=== PATIENT | female | born 2000 | race Caucasian/White ===

== ENCOUNTER 2020-06-07 15:16 | Emergency (ER) | payer OTHER ==
--- NOTE | 2020-06-07 16:14 | EDM.PDOC ---
ED HPI GENERAL MEDICAL PROBLEM - General Chief Complaint: Back Pain or Injury Stated Complaint: FELL HURT BACK Time Seen by Provider: 06/07/20 16:04 Source of Information: Reports: Patient History Limitations: Reports: No Limitations - History of Present Illness INITIAL COMMENTS - FREE TEXT/NARRATIVE: Patient presents for evaluation of a recent low back injury after slipping and falling against carpeted steps today. She was walking down steps when her foot went out from in front of her and she fell against the edge of several steps landing on her buttock and low back region. Pain was fairly severe at the time but she was able to stand up and move. Because of the pain, she left work today to come here. She states that about 1 year ago she had a similar fall onto the tailbone region of her back. She was seen at a clinic somewhere for an exam and eventually sessions of physical therapy for her symptoms. The physical therapy was not changing anything in her pain process so she stopped attending the sessions. She had not followed up with anybody since that time. She has had no imaging studies. Prior to the fall today, she would have daily back pain that would wax and wane depending on position and activity. At this time walking and sitting is uncomfortable. When she spoke with family, several of them suggested that perhaps she injured disc in her low back. Onset: Today, Gradual (As described above.) Location: Reports: Back (Low thoracic and entire lumbar region of back is uncomfortable. There is pain along the muscles of the right side of the low thoracolumbar region.) Quality: Reports: Ache, Throbbing Severity: Moderate Improves with: Reports: None Worsens with: Reports: Movement Context: Reports: Trauma Associated Symptoms: Reports: No Other Symptoms Middle Back Pain Score (Numeric/FACES): 7 - Related Data Allergies Allergy/AdvReac Type Severity Reaction Status Date / Time No Known Allergies Allergy Verified 06/07/20 15:40 Home Meds: Home Meds NK [No Known Home Meds] 06/07/20 [History] Past Medical History HEENT History: Reports: Impaired Vision Musculoskeletal History: Reports: Back Pain, Chronic Endocrine/Metabolic History: Reports: Obesity/BMI 30+ - Past Surgical History Head Surgeries/Procedures: Reports: None HEENT Surgical History: Reports: None Endocrine Surgical History: Reports: None Musculoskeletal Surgical History: Reports: None Dermatological Surgical History: Reports: None Social & Family History - Tobacco Use Tobacco Use Status *Q: Never Tobacco User Second Hand Smoke Exposure: No - Caffeine Use Caffeine Use: Reports: None - Recreational Drug Use Recreational Drug Use: No ED ROS GENERAL - Review of Systems Review Of Systems: Comprehensive ROS is negative, except as noted in HPI. ED EXAM,LOWER BACK PAIN/INJURY - Physical Exam Exam: See Below Text/Narrative:: This is an adult female interviewed in room 2. Exam Limited By: No Limitations General Appearance: Alert, Mild Distress Neck: Supple Respiratory/Chest: No Respiratory Distress Cardiovascular: Regular Rate, Rhythm Back Exam: CVA Tenderness (R) (The right paraspinal muscles adjacent to the painful vertebral zone also have pain with palpation. The left side does not bother her.), Vertebral Tenderness (From the lower third of the thoracic spine all the way through to the sacrum there is vertebral tenderness.) Extremities: Normal Inspection Course - Vital Signs Last Recorded V/S: Last Vital Signs Temp 36.7 C 06/07/20 15:41 Pulse 96 06/07/20 15:41 Resp 16 06/07/20 15:41 BP 151/85 H 06/07/20 15:41 Pulse Ox 99 06/07/20 15:41 - Orders/Labs/Meds Orders: Active Orders 24 hr Category Date Time Status Thoracolumbar 2V [CR] Stat Exams 06/07/20 16:16 Ordered - Re-Assessments/Exams Free Text/Narrative Re-Assessment/Exam: 06/07/20 16:24 We will obtain x-ray of the thoracolumbar spine. I discussed with her that previous providers plan with physical therapy he has, none when addressing back pain or injury especially with someone young and otherwise healthy such as she is. When things do not improve, that is when additional imaging or evaluations can or will be performed. The x-ray today would be looking for obvious fracture or malalignment. She will need to pick a primary care team of some kind to enable coordination of her care going forward. 06/07/20 17:45 I reviewed the images from her thoracolumbar series with her in the room. There are some minor remodeling changes in the L4 region extending into the pedicles. While this is not a new finding could represent previous minor injury. There is loss of lumbar lordosis on imaging today likely from the pain that she is experiencing. I discussed that there are 2 parts to her back pain: 1) is the new pain from falling today and 2) is the persistent pain since injury 1 year ago. I recommend cold packs 20 minutes off and on to the painful area that has shown up today. 10-day use of adequate doses of naproxen or ibuprofen will be most helpful. She was given a prescription for tramadol 50 mg, 15 tablets; use as directed. She needs to establish with a primary care provider. I do not know the extent to which she underwent physical therapy and other care in the past but if she did not improve with that, it could be a reason to look at future MR imaging of her lumbar spine. This needs to be a sequential, planned process. Questions were answered. She was discharged in ambulatory, stable condition. Departure - Departure Time of Disposition: 17:23 Disposition: Home, Self-Care 01 Condition: Good Clinical Impression: Back contusion Qualifiers: Encounter type: initial encounter Laterality: right Qualified Code(s): S20.221A - Contusion of right back wall of thorax, initial encounter Back pain Qualifiers: Back pain location: low back pain Chronicity: chronic Back pain laterality: right Sciatica presence: without sciatica Qualified Code(s): M54.5 - Low back pain - Discharge Information Instructions: Acute Back Pain, Adult, Contusion, [id number] Referrals: PCP,None [Primary Care Provider] - Forms: ED Department Discharge Additional Instructions: Cold packs to painful area of back 20 minutes off and on as discussed. Use Aleve up to 6 tablets daily or ibuprofen 200 mg 12 tablets daily regularly for the next 10 days for best effect on your pain. For stronger pain during times where you do not have to be alert, you could use tramadol up to 3 times a day. Since you have had persistent pain for many months, you should establish yourself with a primary care provider to recheck the pain from the fall today but also to look in more detail at the pain that has persisted over the last year. If feeling worse in any way, return to emergency department. Sepsis Event Note (ED) - Evaluation Sepsis Screening Result: No Definite Risk - Focused Exam Vital Signs: Vital Signs Temp Pulse Resp BP Pulse Ox 06/07/20 15:41 36.7 C 96 16 151/85 H 99 06/07/20 15:39 36.7 C 96 16 151/85 H 99 - My Orders Last 24 Hours: My Active Orders 06/07/20 16:16 Thoracolumbar 2V [CR] Stat - Assessment/Plan Last 24 Hours: My Active Orders 06/07/20 16:16 Thoracolumbar 2V [CR] Stat
--- NOTE | 2020-06-09 09:55 | CR ---
Thoracolumbar 2V CLINICAL HISTORY: Back pain, injury FINDINGS: The vertebral body and disc space heights are maintained. There is some straightening of the lumbar lordosis. Transverse and spinous processes and pedicles appear intact. Alignment is maintained IMPRESSION: No fracture or subluxation Straightening of the lumbar lordosis may indicate spasm
== END 2020-06-07 17:40 | disposition home or self-care (01) ==
LOC: JP.ED 15:16
DX: S20.224A Contusion of middle back wall of thorax, initial encounter (principal); S30.0XXA Contusion of lower back and pelvis, initial encounter; E66.9 Obesity, unspecified; Z68.54 Body mass index [BMI] pediatric, 95th percentile for age to less than 120% of the 95th percentile for age; W10.9XXA Fall (on) (from) unspecified stairs and steps, initial encounter; Y93.01 Activity, walking, marching and hiking
CPT/HCPCS: 72080; 72080-26; 99283; 99283-25

== ENCOUNTER 2020-06-21 11:27 | Emergency (ER) | payer OTHER ==
--- NOTE | 2020-06-21 12:22 | EDM.PDOC ---
ED HPI GENERAL MEDICAL PROBLEM - General Chief Complaint: General Stated Complaint: COVID SYMPTOMS Time Seen by Provider: 06/21/20 12:12 Source of Information: Reports: Patient, RN Notes Reviewed History Limitations: Reports: No Limitations - History of Present Illness INITIAL COMMENTS - FREE TEXT/NARRATIVE: 19-year-old female presents emergency department a complaint of congestion and loss of smell she would like to be tested for Covid - Related Data Allergies Allergy/AdvReac Type Severity Reaction Status Date / Time No Known Allergies Allergy Verified 06/21/20 11:33 Home Meds: Home Meds NK [No Known Home Meds] 06/07/20 [History] Past Medical History HEENT History: Reports: Impaired Vision Musculoskeletal History: Reports: Back Pain, Chronic Endocrine/Metabolic History: Reports: Obesity/BMI 30+ - Past Surgical History Head Surgeries/Procedures: Reports: None HEENT Surgical History: Reports: None Endocrine Surgical History: Reports: None Musculoskeletal Surgical History: Reports: None Dermatological Surgical History: Reports: None Social & Family History - Tobacco Use Tobacco Use Status *Q: Never Tobacco User - Caffeine Use Caffeine Use: Reports: None ED ROS GENERAL - Review of Systems Review Of Systems: See Below Constitutional: Reports: Other. Denies: Fever HEENT: Reports: Other (Loss of smell) Respiratory: Reports: Other (Congestion) Cardiovascular: Reports: No Symptoms GI/Abdominal: Reports: No Symptoms ED EXAM, GENERAL - Physical Exam Exam: See Below Exam Limited By: No Limitations General Appearance: Alert, WD/WN, No Apparent Distress Respiratory/Chest: No Respiratory Distress, Lungs Clear, Normal Breath Sounds, No Accessory Muscle Use, Chest Non-Tender Cardiovascular: Regular Rate, Rhythm, No Murmur Course - Vital Signs Last Recorded V/S: Last Vital Signs Temp 96.8 F L 06/21/20 11:40 Pulse 103 H 06/21/20 11:40 Resp 14 06/21/20 11:40 BP 130/83 06/21/20 11:40 Pulse Ox 96 06/21/20 11:40 - Orders/Labs/Meds Orders: Active Orders 24 hr Category Date Time Status CORONAVIRUS COVID-19, [facility] Routine Lab 06/21/20 12:19 Ordered Departure - Departure Time of Disposition: 12:21 Disposition: Home, Self-Care 01 Condition: Fair Clinical Impression: Encounter for screening laboratory testing for COVID-19 virus - Discharge Information Referrals: PCP,None [Primary Care Provider] - Forms: ED Department Discharge, ED Return to Work/School Form Sepsis Event Note (ED) - Evaluation Sepsis Screening Result: No Definite Risk - Focused Exam Vital Signs: Vital Signs Temp Pulse Resp BP Pulse Ox 06/21/20 11:40 96.8 F L 103 H 14 130/83 96 - My Orders Last 24 Hours: My Active Orders 06/21/20 12:19 CORONAVIRUS COVID-19, [facility] Routine - Assessment/Plan Last 24 Hours: My Active Orders 06/21/20 12:19 CORONAVIRUS COVID-19, [facility] Routine Plan: Assessment Acuity = acute Site and laterality = Covid screening Etiology = unknown Manifestations = none Location of injury = Home Lab values = Covid test pending Plan Recommend self quarantine will contact him with test becomes available This note was dictated using [employer] voice recognition software please call with any questions on syntax or grammar.
== END 2020-06-21 12:26 | disposition home or self-care (01) ==
LOC: JP.ED 11:27
DX: R43.9 Unspecified disturbances of smell and taste (principal); E66.9 Obesity, unspecified; Z68.54 Body mass index [BMI] pediatric, 95th percentile for age to less than 120% of the 95th percentile for age; Z20.828 Contact with and (suspected) exposure to other viral communicable diseases
CPT/HCPCS: 99283; U0002

== ENCOUNTER 2023-06-18 19:32 | Emergency (ER) | payer SELFPAY ==
[2023-06-18 20:42] LABS: BASOPHILS ABSOLUTE AUTO 0.05 K/uL (0.00-0.10); BASOPHILS PERCENT AUTO 0.5 % (0.1-1.3); EOSINOPHILS PERCENT AUTO 8.5 % (0.0-5.4); HEMATOCRIT 40.9 % (34.3-46.0); IMMATURE GRAN ABSOLUTE AUTO 0.03 K/uL (0.00-0.23); IMMATURE GRAN PERCENT AUTO 0.3 % (0.0-0.7); LYMPHOCYTES ABSOLUTE AUTO 2.55 K/uL (0.8-3.3); MEAN CORPUSCULAR HEMOGLOBIN 29.9 pg (31.6-35.5); MEAN CORPUSCULAR HGB CONC 34.2 g/dL (31.6-35.5); MEAN CORPUSCULAR VOLUME 87.2 fL (81.4-99.0); MONOCYTES ABSOLUTE AUTO 0.93 K/uL (0.20-0.90); MONOCYTES PERCENT AUTO 8.7 % (3.3-12.6); NEUTROPHILS ABSOLUTE AUTO 6.17 K/uL (1.0-7.6); PLATELET COUNT,PLT 204 K/uL (130-375); RED BLOOD CELL COUNT 4.69 M/uL (3.77-5.24); WHITE BLOOD CELL COUNT,WBC 10.6 K/uL (3.2-11.0)
[2023-06-18 21:03] LABS: A/G RATIO 0.8 (1.2-2.2); ALANINE AMINOTRANSFERASE,ALT 30 U/L (12-78); ALBUMIN 3.4 g/dL (3.4-5.0); ALKALINE PHOSPHATASE 75 U/L (46-116); ASPARTATE AMNIOTRANSFERASE,AST 14 U/L (15-37); BILIRUBIN TOTAL 0.2 mg/dL (0.2-1.0); BLOOD UREA NITROGEN,BUN 14 mg/dL (7-18); C-REACTIVE PROTEIN 0.75 mg/dL (<0.50); CALCIUM 8.5 mg/dL (8.5-10.1); CARBON DIOXIDE,CO2 27 mmol/L (21-32); CHLORIDE,CL 103 mmol/L (100-108); CREATININE 0.7 mg/dL (0.6-1.0); ESTIMATED GFR 125 mL/min (>60); GLUCOSE RANDOM 124 mg/dL (74-106); PROTEIN TOTAL,TP 7.6 g/dL (6.4-8.2); SODIUM,NA 138 mmol/L (140-148)
== END 2023-06-18 22:18 | disposition home or self-care (01) ==
LOC: JP.ED 19:32
DX: E28.2 Polycystic ovarian syndrome (principal); R23.2 Flushing; E66.9 Obesity, unspecified; Z68.41 Body mass index [BMI] 40.0-44.9, adult; Z86.16 Personal history of COVID-19
CPT/HCPCS: 80053; 82533; 83001; 83002; 85025; 86140; 99284

== ENCOUNTER 2024-09-26 11:53 | Emergency (ER) | payer SELFPAY ==
[2024-09-26] MEDS: Ketorolac 30 MG/ML SDV IM ONE (12:35)
[2024-09-26 12:44] LABS: BASOPHILS ABSOLUTE AUTO 0.04 K/uL (0.00-0.10); BASOPHILS PERCENT AUTO 0.5 % (0.1-1.3); EOSINOPHILS ABSOLUTE AUTO 0.96 K/uL (0.00-0.40); EOSINOPHILS PERCENT AUTO 12.5 % (0.0-5.4); HEMATOCRIT 44.9 % (34.3-46.0); HEMOGLOBIN 15.7 g/dL (11.2-15.5); IMMATURE GRAN PERCENT AUTO 0.3 % (0.0-0.7); LYMPHOCYTES ABSOLUTE AUTO 1.85 K/uL (0.8-3.3); LYMPHOCYTES PERCENT AUTO 24.1 % (11.4-47.7); MEAN CORPUSCULAR HEMOGLOBIN 30.7 pg (31.6-35.5); MEAN CORPUSCULAR VOLUME 87.7 fL (81.4-99.0); MONOCYTES ABSOLUTE AUTO 0.88 K/uL (0.20-0.90); MONOCYTES PERCENT AUTO 11.4 % (3.3-12.6); NEUTROPHILS ABSOLUTE AUTO 3.94 K/uL (1.0-7.6); NEUTROPHILS PERCENT AUTO 51.2 % (40.0-78.1); PLATELET COUNT,PLT 184 K/uL (130-375); RED BLOOD CELL COUNT 5.12 M/uL (3.77-5.24); WHITE BLOOD CELL COUNT,WBC 7.7 K/uL (3.2-11.0)
[2024-09-26 13:02] LABS: IMMATURE GRAN ABSOLUTE AUTO 0.02 K/uL (0.00-0.23)
[2024-09-26 13:05] LABS: A/G RATIO 0.8 (1.2-2.2); ALANINE AMINOTRANSFERASE,ALT 46 U/L (12-78); ALBUMIN 3.8 g/dL (3.4-5.0); ALKALINE PHOSPHATASE 86 U/L (46-116); ASPARTATE AMNIOTRANSFERASE,AST 21 U/L (15-37); BILIRUBIN TOTAL 0.3 mg/dL (0.2-1.0); BLOOD UREA NITROGEN,BUN 9 mg/dL (7-18); CALCIUM 9.4 mg/dL (8.5-10.1); CARBON DIOXIDE,CO2 26 mmol/L (21-32); CHLORIDE,CL 101 mmol/L (100-108); CREATININE 0.8 mg/dL (0.6-1.0); EST CRCL DRUG DOSING (CG) 101.51 mL/min; ESTIMATED GFR 105 mL/min (>60); GLUCOSE RANDOM 88 mg/dL (74-106); POTASSIUM,K 4.1 mmol/L (3.6-5.2); PROTEIN TOTAL,TP 8.6 g/dL (6.4-8.2); SODIUM,NA 139 mmol/L (140-148)
[2024-09-26 13:07] LABS: ANION GAP 16.1 mmol/L (5.0-14.0)
[2024-09-26 13:23] LABS: CORONAVIRUS COVID-19 NAA NEGATIVE (NEGATIVE); INFLUENZA A NAA NEGATIVE (NEGATIVE); INFLUENZA B NAA NEGATIVE (NEGATIVE); RESPIRATORY SYNCYTIAL VIR NAA NEGATIVE (NEGATIVE)
== END 2024-09-26 13:55 | disposition home or self-care (01) ==
LOC: JP.ED 11:53
DX: R52 Pain, unspecified (principal); Z86.16 Personal history of COVID-19
CPT/HCPCS: 0241U; 36415; 71046; 80053; 83605; 85025; 96372; 99285; J1885; 99283